=== PATIENT | male | born 1975 | race Caucasian/White ===

== ENCOUNTER → 2023-07-04 | Outpatient (CLI) | payer MEDICAID ==
--- NOTE | 2023-07-04 18:17 | CT ---
EXAMINATION TYPE: CT sinus wo con CT DLP: 456 mGycm, Automated exposure control for dose reduction was used. DATE OF EXAM: 07/04/2023 4:42 PM COMPARISON: None. CLINICAL INDICATION:Male, 48 years old with history of J32.0 SINUSITIS; , Chronic sinusitis. TECHNIQUE: Multiple thin axial images were obtained through the paranasal sinuses without the use of IV contrast. Additional coronal and sagittal reformatted images were submitted for evaluation. Contrast used: none Oral contrast used: none FINDINGS: Frontal sinuses: Normally developed and aerated. Frontal Recess: Clear Maxillary Sinuses: Mild mucosal thickening bilaterally with retention cyst in the left inferior aspec t measuring up to 21 mm Maxillary Infundibula([facility]): Clear, No Blanca cells identified. Ethmoid sinuses: Normally developed and aerated. Ethmoidal notch: Unprotected bilateral anterior ethm oidal arteries. Sphenoid sinuses: Normally developed and aerated. There is mucosal thickening most proximal left sphe noid sinus. There is sellar sphenoid sinus pneumatization without evidence of dehiscence. No dehisce nce of carotid canal. No evidence of optic nerve dehiscence within the sphenoid sinus. No evidence of Onodi cells. Sphenoethmoidal recesses: Clear. Nasal septum: Minimally leftward deviated. Nasal Turbinates: Mild mucosal thickening on the left inferior and middle turbinate. Mastoid air cells & middle ears: The air cells are clear. The middle ears are grossly unremarkable. Modified Soft tissues & Brain: Partially seen without gross abnormality. Globes are intact. Other: Cribriform plate demonstrates symmetric Keros classification type 1 cribriform plate. No evidence of bony dehiscence of skull base. Lamina papyracea is intact without evidence of remote orbital fracture or orbital prolapse into the e thmoid sinus. IMPRESSION: 1. Mild paranasal sinus disease. 2. The ostiomeatal units, frontonasal and sphenoethmoidal recesses are clear.
== END | disposition home or self-care (01) ==
LOC: RADCTMAIN 15:46
PROVIDERS: ATTEND Otolaryngology
DX: J32.0 Chronic maxillary sinusitis (principal); J32.9 Chronic sinusitis, unspecified
CPT/HCPCS: 70486

== ENCOUNTER 2024-08-13 11:41 | Day surgery (SDC) | payer MEDICAID ==
[2024-08-13] MEDS: IV FLUID CONTINUATION 1,000 ML IV ONE ×2 (12:15→12:57)
[2024-08-13 12:17] VITALS: TEMP 97
[2024-08-13] MEDS: LACTATED RINGERS 1,000 ML IV SCH (12:24)
[2024-08-13] MEDS ORDERED: PROPOFOL 10 MG/ML 20 ML VIAL IV ONE (13:02)
--- NOTE | 2024-08-13 13:15 | P.PCN ---
Date of Procedure: 08/13/24 Procedure(s) Performed: BRIEF HISTORY: Patient is a 49-year-old pleasant white male scheduled for an elective colonoscopy as a part of screening for cancer. PROCEDURE PERFORMED: Colonoscopy. PREOPERATIVE DIAGNOSIS: Screening for colon cancer. IV sedation per Anesthesia. PROCEDURE: After informed consent was obtained, the patient, was brought into the endoscopy unit. IV sedation was administered by Anesthesia under continuous monitoring. Digital rectal examination was normal. Initially the Olympus CF-160 flexible video colonoscope was then inserted in the rectum, gradually advanced into the cecum without any difficulty. Careful examination was performed as the scope was gradually being withdrawn. Ileocecal valve and the appendiceal orifice were visualized and appeared normal. Prep was excellent. Mucosa of the cecum, ascending colon, transverse colon, descending colon, sigmoid colon, and rectum appeared normal. Retroflexion was performed in the rectum and no lesions were seen. The patient tolerated the procedure well. IMPRESSION: Normal-appearing colon from rectum to cecum with no evidence of colorectal neoplasia. RECOMMENDATIONS: Findings of this examination were discussed with the patient as well as his family. He was advised to have repeat screening colonoscopy in 10 years..
[2024-08-13 13:29] VITALS: RESP 16
[2024-08-13 13:41] VITALS: BP 115/68; PULSE 47
== END 2024-08-13 14:07 | disposition home or self-care (01) ==
LOC: ORWHC2ENDO 11:41
PROVIDERS: ATTEND Internal Medicine Gastroenterology
DX: Z12.11 Encounter for screening for malignant neoplasm of colon (principal)
CPT/HCPCS: 45378; J2704